=== PATIENT | female | born 1925 | race Caucasian/White ===

== ENCOUNTER → 2016-12-30 | Outpatient (CLI) | payer OTHER ==
[~2016-12-30] MED LIST: ACET325T96 PO; ALPR-411 PO; ALPR0.25 PO; ATOR-22 PO; BSP/5 PO; CLC150 PO; DORZ1SOL OPR; DORZ2SOL17 OPR; FURO-85 PO; LACTCHW3 PO; LATA0.009 OPB; LISI20TA3 PO; MCRK20 PO; MELA1TAB5 PO; METO50TA16 PO; MULTTAB66 PO; PANT40TA PO; POTA20TA13 PO; SERT25TA PO; SLWMEC PO; TIMO0.2534 OPR; TRAM-10 PO; [UNRECOGNIZED DRUG - CODE] OPR
== END ==
LOC: C.LABCC 09:53
PROVIDERS: ATTEND Internal Medicine
DX: E78.5 Hyperlipidemia, unspecified (principal)

== ENCOUNTER → 2017-03-11 | Outpatient (CLI) | payer OTHER ==
[2017-03-11 08:56] LABS: BLOOD UREA NITROGEN 20 mg/dl (7-18); BUN/CREATININE RATIO 22.2 (10-20); CARBON DIOXIDE 27 mmol/L (21-32); CHLORIDE 101 mmol/L (98-107); CREATININE 0.92 mg/dl (0.60-1.20); GLUCOSE 90 mg/dl (70-99); POTASSIUM 4.5 mmol/L (3.5-5.1); SODIUM 134 mmol/L (136-145)
[2017-03-11 09:34] LABS: CALCIUM 8.7 mg/dl (8.5-10.1)
== END ==
LOC: C.LABCC 08:24
PROVIDERS: ATTEND Internal Medicine
DX: E87.1 Hypo-osmolality and hyponatremia (principal)

== ENCOUNTER 2017-04-10 08:27 | Emergency (ER) | payer OTHER ==
[~2017-04-10] VITALS: Ht 160 cm; Wt 62.2 kg
[~2017-04-10 08:27] MED LIST changes: -ALPR0.25 PO; -DORZ2SOL17 OPR; -MELA1TAB5 PO; -POTA20TA13 PO; -TRAM-10 PO; -[UNRECOGNIZED DRUG - CODE] OPR
[2017-04-10 08:29] VITALS: TEMP 36.6; Ht 160 cm; Wt 62.2 kg
[2017-04-10] MEDS ORDERED: DORZ2SOL17 OPR (08:48)
[2017-04-10] MEDS ORDERED: MULTTAB66 PO (08:48)
[2017-04-10] MEDS ORDERED: MELA1TAB5 PO (08:48)
[2017-04-10] MEDS ORDERED: ALPR0.25 PO (08:48)
[2017-04-10] MEDS ORDERED: LATA0.009 OPB (08:48)
--- NOTE | 2017-04-10 08:49 | EMERGENCY ROOM VISIT NOTE ---
History Report prepared by Jose: Obie Jordan Under the Supervision of: Dr. Safia Connolly M.D. First contact with patient: 08:33 Chief Complaint: WRIST PAIN Stated Complaint: WRIST INJURY History of Present Illness The patient is an 89 year old female who presents to the Emergency Room with complaints of pain in the left wrist that began shortly prior to arrival fallowing a falling episode. Per [facility] Nursing staff the patient had a witnessed fall while they were helping her get out of bed this morning. She denies hitting her head and she did not lose consciousness, although she has dementia and is unreliable. Source of History: nursing staff Onset: Shortly UPHOLSTERER OUTSIDE Position: wrist (left) Associated Symptoms: No LOC, No headache Review of Systems See HPI for pertinent positives & negatives. A total of 10 systems reviewed and were otherwise negative. Past Medical & Surgical Medical Problems: (1) CAD (coronary artery disease) (2) Cataract (3) CHF (congestive heart failure) (4) CKD (chronic kidney disease) stage 3, GFR 30-59 ml/min (5) Depression (6) Hyperlipidemia (7) Hypertension Surgical Problems: (1) H/O: hysterectomy (2) Hx of appendectomy (3) Hx of tonsillectomy Family History Gallbladder disease Heart disease Hypertension Social History Smoking Status: Never Smoker Alcohol Use: occasionally Drug Use: none Housing Status: fdc Occupation Status: retired Current/Historical Medications Scheduled Alprazolam (Xanax), 0.25 MG PO HS Atorvastatin (Lipitor), 20 MG PO DAILY Buspirone HCl (Buspirone HCl), 5 MG PO BID Dorzolamide Hcl (Trusopt Oph), 1 DROPS OPR BID Furosemide (Lasix), 20 MG PO DAILY Latanoprost (Xalatan 0.005% Oph Nadira), 1 DROPS OPB HS Lisinopril (Prinivil), 20 MG PO DAILY Magnesium Chloride (Slow-Mag Tab), 64 MG PO DAILY Melatonin (Kp Melatonin), 3 MG PO HS Metoprolol Tartrate (Lopressor) (Lopressor), 50 MG PO BID Multiple Vitamins W/ Minerals (I-Keyur), 1 TAB PO QAM Pantoprazole (Protonix), 40 MG PO BID Potassium Chloride Microencaps (Potassium Chloride Er), 20 MEQ PO QAM Sertraline (Zoloft), 25 MG PO QAM Timolol Maleate (Timolol Maleate Ophthalmi), 1 DROP OPR BID Scheduled PRN Acetaminophen Tab (Tylenol), 650 MG PO Q4 PRN for Pain Tramadol (Ultram), 1 TABS PO Q6 PRN for Pain Allergies Coded Allergies: No Known Allergies (Unverified , 04/10/17) Physical Exam Vital Signs Date Time Temp Pulse Resp B/P Pulse Ox O2 Delivery O2 Flow Rate FiO2 04/10/17 11:05 74 18 149/82 94 Room Air 04/10/17 08:29 36.6 69 20 151/72 91 Room Air Physical Exam Vital signs reviewed. General: Well-appearing elderly female, in no significant distress. HEENT: No scleral icterus, PERRLA, neck supple. Atraumatic. Cardiovascular: Regular rate and rhythm, Systolic ejection murmur. Pulmonary: Clear to auscultation bilaterally, normal work of breathing. Abdomen: Soft, nontender, nondistended, positive bowel sounds. Musculoskeletal: Atraumatic, 1+ pitting edema. L wrist deformity, NVI distally Neurologic: Patient awake alert and answers questions, but inappropriately, pt not oriented. Cranial nerves 2 through 12 grossly intact. Skin: Warm, dry, no rash Medical Decision & Procedures ER Provider Diagnostic Interpretation: Radiology results as stated below per my review and radiologist interpretation: HEAD CT NONCONTRAST CT DOSE: 638.56 mGycm HISTORY: fall, ?head injury TECHNIQUE: Multiaxial CT images of the head were performed without the use of intravenous contrast. Automated exposure control was utilized for this study. Comparison: Head CT 02/01/2016. Findings: The paranasal sinuses and mastoid air cells are clear. The calvarium and skull base are intact. There is no mass, hematoma, midline shift, acute infarct. White matter hypodensity is nonspecific but suggestive of microvascular ischemic change. The ventricles and sulci demonstrate moderate age-related involutional changes. Impression: No significant change compared to the prior study. No acute intracranial abnormality. Electronically signed by: Rad Borges M.D. 04/10/2017 9:45 AM Dictated Date/Time: 04/10/2017 9:28 AM LEFT WRIST MIN 3 VIEWS ROUTINE CLINICAL HISTORY: Left wrist pain status post trauma COMPARISON: None. DISCUSSION: The bones are osteopenic. There is acute intra-articular fracture of the distal radius with a resultant 24 degrees dorsal tilt of the radial articular surface. There is associated ulnar styloid fracture. IMPRESSION: Colles' type fracture. Electronically signed by: Aden Rodriguez M.D. 04/10/2017 9:11 AM Dictated Date/Time: 04/10/2017 9:10 AM Medications Administered Medications (Trade) Dose Ordered Sig/Jyotsna Route Start Time Stop Time Status Last Admin Dose Admin Tramadol HCl (Ultram Tab) 50 mg NOW STAT PO 04/10/17 11:04 04/10/17 11:05 DC 04/10/17 11:04 50 MG ED Course 0836: Past medical records reviewed. The patient was evaluated in room B7. A complete history and physical examination was performed. 1022: I discussed the case with Dr. Laquita Schuster, he will come to the Emergency Department to evaluate the patient. 1056: After Evaluation of the patient, Dr. Coelho would like to set up an appointment in his office for the patient this week. 1123: I reevaluated the patient at this time. I discussed Dr. Coelho's decision with her. She will follow up with Dr. Coelho this week. The patient will be discharged home. Medical Decision Differential diagnosis: Etiologies such as fracture, dislocation, neurovascular compromise, compartment syndrome, soft tissue injury, as well as others were entertained. This patient was evaluated and appeared to be in no significant distress. Patient does complain of some pain at the left wrist. X-rays were obtained and reveal a Colles' fracture. The patient is neurovascularly intact distally, there is no open skin. Case was discussed with the orthopedic service, Dr. Cuellar, who has requested the patient is placed in a splint. No fall the patient the office tomorrow. CT scan of the head was obtained and is negative for acute abnormality. Patient was discharged to [facility], who will arrange the ortho appt and transport. Pt was given a Rx for tramadol q6 hrs prn. Consults Time Called: 1011 Consulting Physician: Dr. Laquita Schuster Returned Call: 1022 I discussed the case with Dr. Laquita Schuster, he will come to the Emergency Department to evaluate the patient. Impression Primary Impression: Left wrist fracture Scribe Attestation The scribe's documentation has been prepared under my direction and personally reviewed by me in its entirety. I confirm that the note above accurately reflects all work, treatment, procedures, and medical decision making performed by me. Departure Information Dispostion Home / Self-Care Prescriptions Tramadol (Ultram) 50 Mg Tab 1 TABS PO Q6 Y for Pain, #30 TAB Prov: Safia Connolly M.D. 04/10/17 Referrals Angelina, Neelima (PCP) Forms HOME CARE DOCUMENTATION FORM, IMPORTANT VISIT INFORMATION, WORK / SCHOOL INSTRUCTIONS Patient Instructions My [facility] Additional Instructions Diagnosis: Left Colles' fracture. Ice and elevate the wrist as much as possible. Ultram 50 mg every 6 hours as needed for pain. Follow-up with [facility] tomorrow for reevaluation. Return to the emergency department for worsening of symptoms or any medical concerns.
[2017-04-10] MEDS ORDERED: POTA20TA13 PO (08:51)
[2017-04-10] MEDS ORDERED: [UNRECOGNIZED DRUG - CODE] OPR (08:51)
--- NOTE | 2017-04-10 09:12 | DIAGNOSTIC IMAGING REPORT ---
LEFT WRIST MIN 3 VIEWS ROUTINE CLINICAL HISTORY: Left wrist pain status post trauma COMPARISON: None. DISCUSSION: The bones are osteopenic. There is acute intra-articular fracture of the distal radius with a resultant 24 degrees dorsal tilt of the radial articular surface. There is associated ulnar styloid fracture. IMPRESSION: Colles' type fracture. Electronically signed by: Aden Rodriguez M.D. 04/10/2017 9:11 AM Dictated Date/Time: 04/10/2017 9:10 AM
--- NOTE | 2017-04-10 09:47 | DIAGNOSTIC IMAGING REPORT ---
HEAD CT NONCONTRAST CT DOSE: 638.56 mGycm HISTORY: fall, ?head injury TECHNIQUE: Multiaxial CT images of the head were performed without the use of intravenous contrast. Automated exposure control was utilized for this study. Comparison: Head CT 02/01/2016. Findings: The paranasal sinuses and mastoid air cells are clear. The calvarium and skull base are intact. There is no mass, hematoma, midline shift, acute infarct. White matter hypodensity is nonspecific but suggestive of microvascular ischemic change. The ventricles and sulci demonstrate moderate age-related involutional changes. Impression: No significant change compared to the prior study. No acute intracranial abnormality. Electronically signed by: Rad Borges M.D. 04/10/2017 9:45 AM Dictated Date/Time: 04/10/2017 9:28 AM
[2017-04-10] MEDS ORDERED: TRAMADOL HCL 50 MG TAB PO STA (11:04)
[2017-04-10 11:05] VITALS: BP 149/82; O2SAT 94
[2017-04-10] MEDS ORDERED: TRAM-10 PO (11:37)
== END 2017-04-10 12:06 | disposition home or self-care (01) ==
LOC: EDBD 08:27 → C.EDB 08:31
DX: S62.102A Fracture of unspecified carpal bone, left wrist, initial encounter for closed fracture (principal); W19.XXXA Unspecified fall, initial encounter; F03.90 Unspecified dementia, unspecified severity, without behavioral disturbance, psychotic disturbance, mood disturbance, and anxiety; E78.5 Hyperlipidemia, unspecified; I25.10 Atherosclerotic heart disease of native coronary artery without angina pectoris; I12.9 Hypertensive chronic kidney disease with stage 1 through stage 4 chronic kidney disease, or unspecified chronic kidney disease; N18.3 Chronic kidney disease, stage 3 (moderate); I50.9 Heart failure, unspecified; F32.9 Major depressive disorder, single episode, unspecified; Z90.710 Acquired absence of both cervix and uterus; Z98.890 Other specified postprocedural states; Z98.49 Cataract extraction status, unspecified eye; Z79.899 Other long term (current) drug therapy; Z83.79 Family history of other diseases of the digestive system; Z82.49 Family history of ischemic heart disease and other diseases of the circulatory system